=== PATIENT | female | born 1995 | race Two or more races ===

== ENCOUNTER 2016-11-02 20:52 | Emergency (ER) | payer OTHER ==
[2016-11-02 21:50] VITALS: BP 108/64
[2016-11-02 22:22] LABS: APPEARANCE,URINE CLOUDY; BILIRUBIN,URINE NEGATIVE (NEGATIVE); GLUCOSE, URINE NEGATIVE (NEGATIVE); KETONES,URINE TRACE mg/dL (NEGATIVE); LEUKOCYTE ESTERASE,URINE LARGE (NEGATIVE); NITRITE,URINE POSITIVE (NEGATIVE); PROTEIN,URINE 100 mg/dL (NEGATIVE); URINE SPECIFIC GRAVITY 1.011; UROBILINOGEN,URINE NEGATIVE mg/dL (<2.0)
[2016-11-02] MEDS ORDERED: CEPHALEXIN 500 MG CAPSULE PO ONE (22:31)
--- NOTE | 2016-11-02 22:33 | ER Document Report ---
ED General - General Chief Complaint: Urinary Problem Stated Complaint: URINARY PROBLEMS Time Seen by Provider: 11/02/16 22:16 Notes: Patient is a 21-year-old female currently 13 weeks who presents with 3 days of progressively worsening dysuria and suprapubic abdominal pain. States that she began to have a dull, constant, throbbing pain to her right flank which is what prompted her to come to the emergency department today. No history of similar symptoms in the past. She denies any associated fever, nausea, vomiting, headache, neck pain or altered mental status. She has not seen her primary doctor regarding today's concerns. She is not noted that nothing seems to improve or worsen her pain. No vaginal bleeding or discharge. Past Medical History - General Information source: Patient - Social History Smoking Status: Never Smoker Frequency of alcohol use: None Drug Abuse: None Lives with: Spouse/Significant other Family History: Reviewed & Not Pertinent Renal/ Medical History: Denies: Hx Peritoneal Dialysis Review of Systems - Review of Systems Notes: Constitutional: Negative for fever. HENT: Negative for sore throat. Eyes: Negative for visual changes. Cardiovascular: Negative for chest pain. Respiratory: Negative for shortness of breath. Gastrointestinal: Negative for abdominal pain, vomiting or diarrhea. Genitourinary: Positive for dysuria. Musculoskeletal: Negative for back pain. Skin: Negative for rash. Neurological: Negative for headaches, weakness or numbness. 10 point ROS negative except as marked above and in HPI. Physical Exam - Vital signs Vitals: Temp Pulse Resp BP Pulse Ox 99.0 F 97 20 108/64 100 11/02/16 21:49 11/02/16 21:49 11/02/16 21:49 11/02/16 21:49 11/02/16 21:49 Interpretation: Normal Notes: PHYSICAL EXAMINATION: GENERAL: Well-appearing, well-nourished and in no acute distress. HEAD: Atraumatic, normocephalic. EYES: Pupils equal round and reactive to light, extraocular movements intact, sclera anicteric, conjunctiva are normal. ENT: nares patent, oropharynx clear without exudates. Moist mucous membranes. NECK: Normal range of motion, supple without lymphadenopathy LUNGS: Breath sounds clear to auscultation bilaterally and equal. No wheezes rales or rhonchi. HEART: Regular rate and rhythm without murmurs ABDOMEN: Soft, mild suprapubic abdominal tenderness, normoactive bowel sounds. No guarding, no rebound. No masses appreciated. Mild right CVA tenderness EXTREMITIES: Normal range of motion, no pitting or edema. No cyanosis. NEUROLOGICAL: No focal neurological deficits. Moves all extremities spontaneously and on command. PSYCH: Normal mood, normal affect. SKIN: Warm, Dry, normal turgor, no rashes or lesions noted. Course - Re-evaluation Re-evalutation: 11/02/16 22:31 Presentation is most consistent with likely early acute pyelonephritis vs cystitis. No constitutional symptoms. Laboratories do demonstrate a large amount of white blood cells in the urine as well as bacteria. Right sided CVA tenderness is present on exam. I do not suspect an acute appendicitis, biliary pathology, pancreatitis, intra-abdominal abscess, or tubo-ovarian abscess based on history and examination. She is otherwise extremely well in appearance, vitals within normal limits. She does not meet sepsis criteria or have indications for lab work. She is 13 weeks . Patient is able to tolerate oral intake without difficulty. She will be started on cephalexin. A urine culture has been sent.At this time will discharge with return precautions and follow-up recommendations. Verbal discharge instructions given a the bedside and opportunity for questions given. Medication warnings reviewed. Patient is in agreement with this plan and has verbalized understanding of return precautions and the need for primary care follow-up in the next 24-72 hours. - Vital Signs Vital signs: Temp Pulse Resp BP Pulse Ox 99.0 F 97 20 108/64 100 11/02/16 21:49 11/02/16 21:49 11/02/16 21:49 11/02/16 21:49 11/02/16 21:49 - Laboratory Laboratory results interpreted by nh: 11/02/16 11/02/16 21:55 21:55 Urine Protein 100 H Urine Ketones TRACE H Urine Blood MODERATE H Urine Nitrite POSITIVE H Ur Leukocyte Esterase LARGE H Urine HCG, Qual POSITIVE H Discharge - Discharge Clinical Impression: Pyelonephritis Condition: Good Disposition: HOME, SELF-CARE Additional Instructions: You have been diagnosed with a condition called pyelonephritis which is an infection involving your kidneys and bladder. You have been given a dose of antibiotics here in the emergency department to help begin to treat this infection. Your also being sent home on antibiotics. Please start taking these later on today when you fill the prescription. Complete the course even if you feel better. Please return if you have persistent vomiting, pass out, have worsening pain, become unable to tolerate fluids, or have any other symptoms that are concerning to you. Please follow-up with your primary care physician in the next 24-48 hours. Prescriptions: Cephalexin Monohydrate [Keflex 500 mg Capsule] 500 mg PO QID #20 capsule
== END 2016-11-02 23:25 | disposition home or self-care (01) ==
LOC: ER 20:52
DX: N12 Tubulo-interstitial nephritis, not specified as acute or chronic (principal); R39.198 Other difficulties with micturition; Z3A.13 13 weeks gestation of pregnancy
CPT/HCPCS: 36415; 81001; 81025; 87086; 87088; 87186; 99283